=== PATIENT | female | born 1945 | race Caucasian/White ===

== ENCOUNTER → 2019-05-16 | Outpatient (CLI) | payer MEDICARE, BC | LOC: MAMMO 08:41 | DX: Z13.820 Encounter for screening for osteoporosis (principal); Z12.31 Encounter for screening mammogram for malignant neoplasm of breast; M85.852 Other specified disorders of bone density and structure, left thigh; M85.851 Other specified disorders of bone density and structure, right thigh ==

== ENCOUNTER → 2019-05-16 | Outpatient (CLI) | payer MEDICARE, BC | LOC: MAMMO 08:39 | DX: Z12.31 Encounter for screening mammogram for malignant neoplasm of breast (principal) ==

== ENCOUNTER → 2019-05-18 | Outpatient (CLI) | payer MEDICARE, BC | LOC: MAMMO 12:15 | DX: N64.89 Other specified disorders of breast (principal) ==

== ENCOUNTER → 2020-05-29 | Outpatient (CLI) | payer MEDICARE, BC | LOC: RAD 09:00 | DX: M17.0 Bilateral primary osteoarthritis of knee (principal) ==